=== PATIENT | male | born 1945 | race Caucasian/White ===

== ENCOUNTER 2021-06-10 06:59 | Emergency (ER) | payer OTHER ==
[~2021-06-10] VITALS: Ht 180.3 cm; Wt 86.2 kg
[2021-06-10] MEDS ORDERED: LIPITOR40 M1 (07:05)
== END 2021-06-10 14:48 | disposition home or self-care (01) ==
LOC: ER 06:59
DX: S83.8X1A Sprain of other specified parts of right knee, initial encounter (principal); M12.561 Traumatic arthropathy, right knee; X50.0XXA Overexertion from strenuous movement or load, initial encounter; Y93.01 Activity, walking, marching and hiking; Y92.89 Other specified places as the place of occurrence of the external cause; Y99.8 Other external cause status

== ENCOUNTER 2021-06-10 16:10 | Outpatient (CLI) | payer OTHER ==
[~2021-06-10 16:10] MED LIST: LIPITOR40 M1
== END 2021-06-10 16:21 | disposition home or self-care (01) ==
LOC: TOM 16:10
PROVIDERS: ATTEND Orthopaedic Surgery
DX: S82.034A Nondisplaced transverse fracture of right patella, initial encounter for closed fracture (principal); M17.11 Unilateral primary osteoarthritis, right knee

== ENCOUNTER 2021-06-16 07:40 | Outpatient (CLI) | payer OTHER | END 2021-06-16 07:47 | disposition home or self-care (01) | LOC: RAD 07:40 | PROVIDERS: ATTEND Orthopaedic Surgery | DX: S82.024A Nondisplaced longitudinal fracture of right patella, initial encounter for closed fracture (principal) ==

== ENCOUNTER 2021-06-19 18:21 | Emergency (ER) | payer OTHER ==
[~2021-06-19] VITALS: Ht 182.9 cm; Wt 86.2 kg
[2021-06-19] MEDS ORDERED: SPIRONOLACTONE25 MG (18:42)
[2021-06-19] MEDS ORDERED: WARFARIN SODIUM5 MG PO (18:42)
== END 2021-06-19 21:49 | disposition home or self-care (01) ==
LOC: ER 18:21
DX: R60.0 Localized edema (principal); S90.811A Abrasion, right foot, initial encounter; T79.8XXA Other early complications of trauma, initial encounter; X58.XXXA Exposure to other specified factors, initial encounter; Y93.89 Activity, other specified; Y92.89 Other specified places as the place of occurrence of the external cause; Y99.8 Other external cause status

== ENCOUNTER 2021-10-07 09:47 | Outpatient (CLI) | payer OTHER ==
[~2021-10-07 09:47] MED LIST changes: +SPIRONOLACTONE25 MG; +WARFARIN SODIUM5 MG PO
== END 2021-10-07 10:06 | disposition home or self-care (01) ==
LOC: LAB 09:47
PROVIDERS: ATTEND Orthopaedic Surgery
DX: E56.1 Deficiency of vitamin K (principal); E55.9 Vitamin D deficiency, unspecified; E21.2 Other hyperparathyroidism; M85.88 Other specified disorders of bone density and structure, other site; E88.89 Other specified metabolic disorders; M81.8 Other osteoporosis without current pathological fracture

== ENCOUNTER 2021-11-24 14:33 | Outpatient (CLI) | payer OTHER | END 2021-11-24 14:43 | disposition home or self-care (01) | LOC: RAD 14:33 | PROVIDERS: ATTEND Orthopaedic Surgery | DX: S32.424A Nondisplaced fracture of posterior wall of right acetabulum, initial encounter for closed fracture (principal) ==

== ENCOUNTER 2022-05-13 13:56 | Outpatient (CLI) | payer OTHER | END 2022-05-13 14:01 | disposition home or self-care (01) | LOC: NUCLEAR 13:56 | PROVIDERS: ATTEND Orthopaedic Surgery | DX: M85.9 Disorder of bone density and structure, unspecified (principal) ==

== ENCOUNTER 2022-10-25 09:32 | Outpatient (CLI) | payer OTHER | END 2022-10-25 09:39 | disposition home or self-care (01) | LOC: RAD 09:32 | PROVIDERS: ATTEND Orthopaedic Surgery | DX: M25.562 Pain in left knee (principal) ==

== ENCOUNTER 2023-11-06 09:33 | Outpatient (CLI) | payer OTHER | END 2023-11-06 09:36 | disposition home or self-care (01) | LOC: RAD 09:33 | PROVIDERS: ATTEND Orthopaedic Surgery | DX: Z96.652 Presence of left artificial knee joint (principal) ==